=== PATIENT | male | born 1985 | race Caucasian/White ===

== ENCOUNTER 2020-05-05 12:39 | Emergency (ER) | payer MEDICAID ==
[~2020-05-05] VITALS: Ht 167.6 cm; Wt 76.0 kg
[2020-05-05] MEDS ORDERED: TETRACAINE 0.5% OPHTH DROPS 4ML RIGHTEYE ONE (13:00)
[2020-05-05] MEDS ORDERED: FLUORESCEIN SODIUM 1MG/STRIP RIGHTEYE ONE (14:15)
[2020-05-05] MEDS ORDERED: HYDROCODONE/ACETAMINOPHEN 5/325MG TABLET PO ONE (14:15)
[2020-05-05 16:15] VITALS: BP 134/78
== END 2020-05-05 16:16 | disposition home or self-care (01) ==
LOC: ER 12:39
DX: S05.01XA Injury of conjunctiva and corneal abrasion without foreign body, right eye, initial encounter (principal); V09.9XXA Pedestrian injured in unspecified transport accident, initial encounter; Y93.89 Activity, other specified; Y92.89 Other specified places as the place of occurrence of the external cause; Y99.8 Other external cause status
CPT/HCPCS: 70486; 99284

== ENCOUNTER 2021-05-10 01:05 | Emergency (ER) | payer MEDICAID ==
[~2021-05-10] VITALS: Ht 165.1 cm; Wt 76.0 kg
[2021-05-10 01:12] VITALS: BP 145/94
== END 2021-05-10 02:01 | disposition left against medical advice (07) ==
LOC: ER 01:05
DX: Z53.21 Procedure and treatment not carried out due to patient leaving prior to being seen by health care provider (principal); R07.89 Other chest pain
CPT/HCPCS: 93005

== ENCOUNTER 2021-05-19 22:44 | Emergency (ER) | payer MEDICAID ==
[~2021-05-19] VITALS: Ht 167.6 cm; Wt 75.0 kg
[2021-05-20 00:15] LABS: BASOPHILS % 0.6 % (0.0-2.0); EOSINOPHILS % 1.1 % (0.0-5.0); HEMATOCRIT. 43.1 % (42.0-52.0); LYMPHOCYTES % 34.1 % (20.0-50.0); MEAN CORPUSCULAR HEMOGLOBIN 29.6 pg (28.0-32.0); MEAN CORPUSCULAR VOLUME 85.2 fL (80.0-94.0); MEAN PLATELET VOLUME 8.8 fl (7.4-10.4); MONOCYTES % 8.3 % (2.0-8.0); NEUTROPHILS % 55.9 % (40.0-76.0); PLATELET 299 x1000/uL (130-400); RED BLOOD CELL COUNT 5.06 mill/uL (4.7-6.1)
[2021-05-20 00:22] LABS: CHLORIDE 105 mEq/L (98-107)
[2021-05-20 00:26] LABS: ETHANOL BLOOD < 10 mg/dL
[2021-05-20 00:31] LABS: *BENZODIAZEPINES SCREEN URINE NEGATIVE (NEGATIVE)
[2021-05-20 00:32] LABS: *AMPHETAMINES SCREEN URINE NEGATIVE (NEGATIVE); *COCAINE SCREEN URINE PRESUMTIVE POSITIVE (NEGATIVE); CANNABINOID URINE SCREEN NEGATIVE (NEGATIVE); METHADONE URINE SCREEN NEGATIVE (NEGATIVE); OPIATES URINE SCREEN NEGATIVE (NEGATIVE); PHENCYCLIDINE URINE SCREEN NEGATIVE (NEGATIVE)
[2021-05-20 00:33] LABS: *BARBITURATES SCREEN URINE NEGATIVE (NEGATIVE)
[2021-05-20 05:01] VITALS: BP 107/63
[2021-05-20] MEDS ORDERED: IOHEXOL-350 100 ML BOTTLE ONE (07:25)
== END 2021-05-20 05:02 | disposition home or self-care (01) ==
LOC: ER 22:44
DX: R07.89 Other chest pain (principal); R00.2 Palpitations
CPT/HCPCS: 36415; 71045; 71275; 80053; 80305; 80320; 83880; 84484; 85025; 85379; 99285; Q9967; G0480

== ENCOUNTER 2021-06-09 22:22 | Emergency (ER) | payer MEDICAID ==
[~2021-06-09] VITALS: Ht 165.1 cm; Wt 75.0 kg
[2021-06-09 22:41] VITALS: BP 137/73
== END 2021-06-10 00:57 | disposition left against medical advice (07) ==
LOC: ER 22:22
DX: Z53.21 Procedure and treatment not carried out due to patient leaving prior to being seen by health care provider (principal)

== ENCOUNTER 2021-08-22 17:43 | Emergency (ER) | payer MEDICAID ==
[~2021-08-22] VITALS: Ht 167.6 cm; Wt 72.0 kg
[2021-08-22 17:47] VITALS: BP 152/96
[2021-08-22] MEDS ORDERED: LORAZEPAM 1MG TABLET PO ONE (19:00)
[2021-08-24] MEDS ORDERED: TOPUD PO (07:09)
== END 2021-08-22 19:27 | disposition home or self-care (01) ==
LOC: ER 17:59
DX: R00.2 Palpitations (principal); R07.89 Other chest pain; F12.10 Cannabis abuse, uncomplicated
CPT/HCPCS: 93005; 99283

== ENCOUNTER 2021-11-12 12:54 | Emergency (ER) | payer MEDICAID ==
[~2021-11-12] VITALS: Ht 167.6 cm; Wt 75.0 kg
[~2021-11-12 12:54] MED LIST: TOPUD PO
[2021-11-12 12:55] VITALS: BP 133/88
[2021-11-12 13:51] LABS: *AMPHETAMINES SCREEN URINE PRESUMTIVE POSITIVE (NEGATIVE); *BARBITURATES SCREEN URINE NEGATIVE (NEGATIVE); *BENZODIAZEPINES SCREEN URINE NEGATIVE (NEGATIVE)
[2021-11-12 13:52] LABS: *COCAINE SCREEN URINE PRESUMTIVE POSITIVE (NEGATIVE); CANNABINOID URINE SCREEN PRESUMTIVE POSITIVE (NEGATIVE); METHADONE URINE SCREEN NEGATIVE (NEGATIVE); OPIATES URINE SCREEN NEGATIVE (NEGATIVE); PHENCYCLIDINE URINE SCREEN NEGATIVE (NEGATIVE)
[2021-11-12 14:09] LABS: BG BASE EXCESS -2.6 mmol/L (-2.0-2.0); BG CARBOXYHEMOGLOBIN 1.8 % (0.5-1.5); BG DEOXYHEMOGLOBIN 3.8 % (0.0-5.0); BG FRACTION INSPIRED OXYGEN 21; BG HCO3 ACT 21.7 mmol/L (22.0-26.0); BG METHEMOGLOBIN 0.3 % (0.0-1.5); BG OXYGEN SATURATION 96.1 % (92.0-98.5); BG OXYHEMOGLOBIN 94.1 % (94.0-97.0); BG PCO2 36.6 mmHg (35.0-45.0); BG PH 7.391 (7.350-7.450); BG PO2 93.2 mmHg (75.0-100.0); BG SAMPLE SITE RIGHT RADIAL; BG TOTAL HEMOGLOBIN 16.6 g/dL (12.0-18.0); BG VENT MODE ROOM AIR
== END 2021-11-12 15:00 | disposition home or self-care (01) ==
LOC: ER 12:54
DX: F14.10 Cocaine abuse, uncomplicated (principal); F15.10 Other stimulant abuse, uncomplicated; F12.10 Cannabis abuse, uncomplicated; R06.4 Hyperventilation
CPT/HCPCS: 36415; 36600; 71045; 80305; 80320; 82375; 82805; 93005; 99291; G0480

== ENCOUNTER 2021-12-03 00:18 | Emergency (ER) | payer MEDICAID ==
[~2021-12-03] VITALS: Ht 165.1 cm; Wt 76.0 kg
[2021-12-03 00:20] VITALS: BP 144/93
[2021-12-03 01:29] LABS: BASOPHILS % 0.4 % (0.0-2.0); EOSINOPHILS % 0.2 % (0.0-5.0); HEMATOCRIT. 44.7 % (42.0-52.0); HEMOGLOBIN. 14.8 g/dL (14.0-18.0); LYMPHOCYTES % 19.2 % (20.0-50.0); MEAN CORPUSCULAR HEMOGLOBIN 28.8 pg (28.0-32.0); MEAN CORPUSCULAR VOLUME 86.8 fL (80.0-94.0); MEAN PLATELET VOLUME 8.7 fl (7.4-10.4); NEUTROPHILS % 73.2 % (40.0-76.0); PLATELET 274 x1000/uL (130-400); RED BLOOD CELL COUNT 5.15 mill/uL (4.7-6.1); RED CELL DISTRIBUTION WIDTH 12.6 % (11.6-14.6)
[2021-12-03 01:37] LABS: CHLORIDE 102 mEq/L (98-107)
== END 2021-12-03 02:00 | disposition left against medical advice (07) ==
LOC: ER 00:24
DX: R07.89 Other chest pain (principal); F12.10 Cannabis abuse, uncomplicated
CPT/HCPCS: 36415; 80053; 83880; 84484; 85025; 99281; 99284

== ENCOUNTER 2022-01-15 05:43 | Emergency (ER) | payer MEDICAID ==
[~2022-01-15] VITALS: Ht 165.1 cm; Wt 74.0 kg
[2022-01-15] MEDS ORDERED: ACETAMINOPHEN 325MG TABLET PO ONE (07:00)
[2022-01-15] MEDS ORDERED: LORAZEPAM 0.5MG TABLET PO ONE (07:00)
[2022-01-15 08:27] LABS: BASOPHILS % 0.5 % (0.0-2.0); EOSINOPHILS % 0.3 % (0.0-5.0); HEMATOCRIT. 47.3 % (42.0-52.0); HEMOGLOBIN. 15.8 g/dL (14.0-18.0); LYMPHOCYTES % 27.6 % (20.0-50.0); MEAN CORPUSCULAR HEMOGLOBIN 28.7 pg (28.0-32.0); MEAN CORPUSCULAR VOLUME 85.8 fL (80.0-94.0); MEAN PLATELET VOLUME 8.3 fl (7.4-10.4); MONOCYTES % 7.1 % (2.0-8.0); NEUTROPHILS % 64.5 % (40.0-76.0); PLATELET 348 x1000/uL (130-400); RED BLOOD CELL COUNT 5.52 mill/uL (4.7-6.1); RED CELL DISTRIBUTION WIDTH 13.1 % (11.6-14.6)
[2022-01-15 08:41] LABS: CHLORIDE 104 mEq/L (98-107)
[2022-01-15] MEDS ORDERED: DIAZEPAM 5 MG/ML 2ML CPJ IV ONE (09:15)
[2022-01-15 10:31] VITALS: BP 129/87
== END 2022-01-15 10:32 | disposition home or self-care (01) ==
LOC: ER 05:43
DX: R07.89 Other chest pain (principal); R00.0 Tachycardia, unspecified; F12.10 Cannabis abuse, uncomplicated; F10.20 Alcohol dependence, uncomplicated; Y90.9 Presence of alcohol in blood, level not specified
CPT/HCPCS: 36415; 71045; 80053; 83880; 84484; 85025; 93005; 96374; 99285; J3360

== ENCOUNTER 2022-02-13 07:19 | Emergency (ER) | payer MEDICAID ==
[~2022-02-13] VITALS: Ht 165.1 cm; Wt 76.0 kg
[2022-02-13 07:42] VITALS: BP 145/103
== END 2022-02-13 17:59 | disposition left against medical advice (07) ==
LOC: ER 08:32
DX: Z53.21 Procedure and treatment not carried out due to patient leaving prior to being seen by health care provider (principal)

== ENCOUNTER 2022-03-01 00:42 | Emergency (ER) | payer MEDICAID ==
[~2022-03-01] VITALS: Ht 165.1 cm; Wt 73.0 kg
[2022-03-01 00:58] VITALS: BP 155/102
[2022-03-01] MEDS ORDERED: LORAZEPAM 1MG TABLET PO ONE (02:15)
[2022-03-01 02:35] LABS: BASOPHILS % 0.7 % (0.0-2.0); EOSINOPHILS % 0.6 % (0.0-5.0); HEMATOCRIT. 46.3 % (42.0-52.0); HEMOGLOBIN. 15.5 g/dL (14.0-18.0); MEAN CORPUSCULAR HEMOGLOBIN 29.1 pg (28.0-32.0); MEAN CORPUSCULAR VOLUME 86.9 fL (80.0-94.0); MEAN PLATELET VOLUME 8.2 fl (7.4-10.4); MONOCYTES % 6.5 % (2.0-8.0); NEUTROPHILS % 57.2 % (40.0-76.0); PLATELET 385 x1000/uL (130-400); RED BLOOD CELL COUNT 5.33 mill/uL (4.7-6.1); RED CELL DISTRIBUTION WIDTH 13.1 % (11.6-14.6)
[2022-03-01 02:42] LABS: CHLORIDE 104 mEq/L (98-107)
[2022-03-01 02:49] LABS: ETHANOL BLOOD 215 mg/dL
[2022-03-01 06:15] LABS: *AMPHETAMINES SCREEN URINE PRESUMTIVE POSITIVE (NEGATIVE); *BARBITURATES SCREEN URINE NEGATIVE (NEGATIVE); *BENZODIAZEPINES SCREEN URINE NEGATIVE (NEGATIVE); *COCAINE SCREEN URINE PRESUMTIVE POSITIVE (NEGATIVE); CANNABINOID URINE SCREEN PRESUMTIVE POSITIVE (NEGATIVE); METHADONE URINE SCREEN NEGATIVE (NEGATIVE); OPIATES URINE SCREEN NEGATIVE (NEGATIVE); PHENCYCLIDINE URINE SCREEN NEGATIVE (NEGATIVE)
[2022-03-02] MEDS ORDERED: TOPUD PO (10:50)
== END 2022-03-01 05:11 | disposition home or self-care (01) ==
LOC: ER 00:42
DX: R07.89 Other chest pain (principal); F12.10 Cannabis abuse, uncomplicated
CPT/HCPCS: 36415; 71045; 80053; 80305; 80320; 82962; 84484; 85025; 85379; 93005; 99285; G0480

== ENCOUNTER 2022-03-02 03:58 | Emergency (ER) | payer MEDICAID ==
[~2022-03-02] VITALS: Ht 165.1 cm; Wt 73.8 kg
[2022-03-02] MEDS ORDERED: MORPHINE SULFATE 4 MG/ML CPJ (NOT FOR IM USE) IV ONE (07:15)
[2022-03-02 08:14] LABS: BASOPHILS % 1.2 % (0.0-2.0); EOSINOPHILS % 0.5 % (0.0-5.0); HEMATOCRIT. 44.9 % (42.0-52.0); HEMOGLOBIN. 15.2 g/dL (14.0-18.0); MEAN CORPUSCULAR HEMOGLOBIN 29.3 pg (28.0-32.0); MEAN CORPUSCULAR VOLUME 86.9 fL (80.0-94.0); MEAN PLATELET VOLUME 8.4 fl (7.4-10.4); MONOCYTES % 4.7 % (2.0-8.0); NEUTROPHILS % 71.6 % (40.0-76.0); PLATELET 321 x1000/uL (130-400); RED BLOOD CELL COUNT 5.17 mill/uL (4.7-6.1); RED CELL DISTRIBUTION WIDTH 12.8 % (11.6-14.6)
[2022-03-02 08:20] LABS: CHLORIDE 103 mEq/L (98-107)
[2022-03-02 09:39] VITALS: BP 134/89
[2022-03-02] MEDS ORDERED: KETOROLAC 30MG/ML VIAL IV ONE (10:30)
[2022-03-02] MEDS ORDERED: TOPUD PO (10:50)
== END 2022-03-02 11:58 | disposition home or self-care (01) ==
LOC: ER 03:58
DX: R07.89 Other chest pain (principal); F12.10 Cannabis abuse, uncomplicated; Z20.822 Contact with and (suspected) exposure to COVID-19
CPT/HCPCS: 36415; 71045; 80053; 83880; 84484; 85025; 85379; 87426; 93005; 96374; 96375; 99285; C9803; J1885; J2270

== ENCOUNTER 2022-06-13 01:43 | Emergency (ER) | payer MEDICAID ==
[~2022-06-13] VITALS: Ht 167.6 cm; Wt 73.6 kg
[2022-06-13 01:59] VITALS: BP 133/85
[2022-06-13] MEDS ORDERED: ASPIRIN 325MG EC TABLET PO ONE (03:00)
== END 2022-06-13 04:46 | disposition home or self-care (01) ==
LOC: ER 01:43
DX: R07.89 Other chest pain (principal); F41.9 Anxiety disorder, unspecified
CPT/HCPCS: 71045; 93005; 99283

== ENCOUNTER 2022-08-20 21:11 | Emergency (ER) | payer MEDICAID ==
[2022-08-20 21:30] VITALS: BP 128/86
[2022-08-20] MEDS ORDERED: METOCLOPRAMIDE HCL 10MG TABLET PO NR (22:00)
[2022-08-20] MEDS: ACETAMINOPHEN 325MG TABLET PO NR ×2 (22:00→23:54)
[2022-08-20] MEDS ORDERED: DIPHENHYDRAMINE 25MG CAPSULE PO NR (22:00)
[2022-08-21] MEDS: ACETAMINOPHEN 325MG TABLET PO NR (00:06)
[2022-08-21] MEDS ORDERED: ASPI1TAB8 PO (01:32)
== END 2022-08-21 02:00 | disposition home or self-care (01) ==
LOC: ER 21:43
DX: R51.9 Headache, unspecified (principal); F12.10 Cannabis abuse, uncomplicated
CPT/HCPCS: 70450; 99284; J8597; Q0163

== ENCOUNTER 2023-05-24 07:11 | Emergency (ER) | payer MEDICAID ==
[~2023-05-24] VITALS: Ht 165.1 cm; Wt 75.0 kg
[2023-05-24 07:17] VITALS: BP 136/91; TEMP 98.2; O2SAT 97
[2023-05-24 07:19] VITALS: PULSE 97; RESP 16
[2023-05-24 07:49] LABS: CHLORIDE 106 mEq/L (98-107); INDEX HEMOLYSI 3 (1-3); INDEX ICTERIC 1 (1-4); INDEX LIPEMIC 1 (1-3); SODIUM 140 mEq/L (136-145)
[2023-05-24 07:53] LABS: BASOPHILS % 0.5 % (0.0-2.0); EOSINOPHILS % 0.4 % (0.0-5.0); HEMATOCRIT. 46.4 % (42.0-52.0); HEMOGLOBIN. 15.6 g/dL (14.0-18.0); LYMPHOCYTES % 15.1 % (20.0-50.0); MEAN CORPUSCULAR HGB CONC 33.5 g/dL (31.0-37.0); MEAN CORPUSCULAR VOLUME 86.5 fL (80.0-94.0); MONOCYTES % 5.7 % (2.0-8.0); NEUTROPHILS % 78.3 % (40.0-76.0); PLATELET 339 x1000/uL (130-400); RED BLOOD CELL COUNT 5.37 mill/uL (4.7-6.1); WHITE BLOOD COUNT 14.5 x1000/uL (4.5-11.0)
[2023-05-24 08:02] LABS: ALANINE AMINOTRANSFERASE 40 IU/L (13-61); ALBUMIN 4.3 g/dL (3.4-5.0); ASPARTATE AMINOTRANSFERASE 21 IU/L (15-37); BILIRUBIN TOTAL 0.4 mg/dL (0.1-1.0); CALCIUM 8.9 mg/dL (8.5-10.1); CARBON DIOXIDE 24 mEq/L (21-32); CREATININE 0.7 mg/dL (0.6-1.3); ETHANOL BLOOD 107 mg/dL (<10); GLUCOSE 104 mg/dL (70-105); NT PRO B-TYPE NATRIURETIC PEP 6 pg/mL (5-125); PROTEIN TOTAL 8.9 g/dL (6.0-8.3); TROPONIN I HIGH SENSITIVITY 10 ng/L (<78); UREA NITROGEN BLOOD 9 mg/dL (7-21)
[2023-05-24] MEDS ORDERED: ASPIRIN 325MG EC TABLET PO ONE (10:45)
== END 2023-05-24 11:38 | disposition left against medical advice (07) ==
LOC: ER 07:11
DX: R07.89 Other chest pain (principal); F12.10 Cannabis abuse, uncomplicated
CPT/HCPCS: 36415; 80053; 80320; 83880; 84484; 85025; 93005; 99284; G0480

== ENCOUNTER 2025-02-23 11:15 | Emergency (ER) | payer MEDICAID ==
[~2025-02-23] VITALS: Ht 175.3 cm; Wt 72.5 kg
[2025-02-23 11:52] LABS: BASOPHILS % 0.8 % (0.0-2.0); EOSINOPHILS % 0.1 % (0.0-5.0); HEMATOCRIT. 47.1 % (42.0-52.0); HEMOGLOBIN. 16.0 g/dL (14.0-18.0); LYMPHOCYTES % 24.5 % (20.0-50.0); MEAN PLATELET VOLUME 8.4 fl (7.4-10.4); MONOCYTES % 5.3 % (2.0-8.0); NEUTROPHILS % 69.3 % (40.0-76.0); PLATELET 378 x1000/uL (130-400); RED BLOOD CELL COUNT 5.54 mill/uL (4.7-6.1); RED CELL DISTRIBUTION WIDTH 12.1 % (11.6-14.6)
[2025-02-23 12:09] LABS: CREATININE 0.8 mg/dL (0.6-1.3)
[2025-02-23 12:10] LABS: ETHANOL BLOOD < 10 mg/dL (<10); UREA NITROGEN BLOOD 13 mg/dL (9-23)
[2025-02-23 12:13] LABS: TROPONIN I HIGH SENSITIVITY 5 ng/L (3.0-53)
[2025-02-23 13:11] VITALS: O2SAT 99
[2025-02-23] MEDS: MIDAZOLAM HCL 2 MG/2 ML VIAL IV ONE (13:11)
[2025-02-23] MEDS: SODIUM CHLORIDE 0.9% 1,000 ML IV ONE (13:11)
[2025-02-23] MEDS: ASPIRIN 81MG TABLET PO ONE (14:45)
[2025-02-23 14:50] LABS: TROPONIN I HIGH SENSITIVITY 5 ng/L (3.0-53)
[2025-02-23] MEDS ORDERED: ACETAMINOPHEN 325MG TABLET PO PRN (15:30)
[2025-02-23] MEDS ORDERED: CLONIDINE 0.1MG TABLET PO PRN (15:30)
[2025-02-23] MEDS ORDERED: ZOLPIDEM TARTRATE 5MG TABLET PO PRN (15:30)
[2025-02-23] MEDS ORDERED: MAGNESIUM/ALUMINUM HYDROXIDE/SIMETHICONE 30ML UDC PO PRN (15:30)
[2025-02-23] MEDS ORDERED: MORPHINE SULFATE 2 MG/ML INJ (NOT FOR IM USE) IV PRN (15:30)
[2025-02-23] MEDS ORDERED: ONDANSETRON HCL 4MG/2ML INJ IV PRN (15:30)
[2025-02-23] MEDS ORDERED: HYDROCODONE/ACETAMINOPHEN 5/325MG TABLET PO PRN (15:30)
[2025-02-23] MEDS ORDERED: NALOXONE HCL 0.4MG/ML VIAL IV PRN (15:45)
[2025-02-23] MEDS ORDERED: LORAZEPAM 0.5MG TABLET PO PRN (15:45)
[2025-02-23] MEDS ORDERED: ENOXAPARIN 40MG/0.4ML SYR SUBCUT SCH (16:00)
[2025-02-23 16:23] VITALS: BP 153/104; PULSE 88; RESP 17; TEMP 36.8; O2SAT 99
[2025-02-23] MEDS ORDERED: MVI, ADULT NO.1 10 ML, FOLIC ACID 1 MG, THIAMINE HCL 100 MG in SODIUM CHLORIDE 0.9% 1,0... IV SCH (17:00)
[2025-02-24] MEDS ORDERED: PANTOPRAZOLE SODIUM 40 MG/VIAL IV SCH (09:00)
== END 2025-02-23 16:47 | disposition left against medical advice (07) ==
LOC: ER 11:15 → EDBEDREQ 14:45 → EDBEDREQTM 14:45 → ENRESERV 14:53 → ER 16:47 → CMPBEDREQ 02-25 07:41
DX: R07.89 Other chest pain (principal); F10.939 Alcohol use, unspecified with withdrawal, unspecified; F14.10 Cocaine abuse, uncomplicated; F41.9 Anxiety disorder, unspecified; Y90.0 Blood alcohol level of less than 20 mg/100 ml
CPT/HCPCS: 80048; 80320; 83880; 83735; 85025; 85379; 84484; 36415; 71045; 93005; 96361; 96374; 99291; J2250; J7030; Z7610; A4606; J3411; J3490; G0480